=== PATIENT | male | born 1940 | race Caucasian/White ===

== ENCOUNTER 2018-06-21 11:31 | Day surgery (SDC) | payer OTHER, SELFPAY ==
[~2018-06-21] VITALS: Ht 182.9 cm; Wt 105.7 kg
[~2018-06-21 11:31] MED LIST: ASPI325 PO; Omeprazole20 M1; TAMS.4ER PO; TRAZ100; Voltaren100 GM
== END 2018-06-21 13:31 | disposition home or self-care (01) ==
LOC: ORSCSDS 11:31
PROVIDERS: Internal Medicine Gastroenterology
PROC: 0DB68ZX Excision of Stomach, Via Natural or Artificial Opening Endoscopic, Diagnostic (ICD-10-PCS; principal; 2018-06-21 13:00)
DX: R13.10 Dysphagia, unspecified (principal); K21.9 Gastro-esophageal reflux disease without esophagitis; I10 Essential (primary) hypertension; F32.9 Major depressive disorder, single episode, unspecified; E78.5 Hyperlipidemia, unspecified; G47.33 Obstructive sleep apnea (adult) (pediatric); E66.9 Obesity, unspecified; Z68.33 Body mass index [BMI] 33.0-33.9, adult; Z79.82 Long term (current) use of aspirin; Z79.899 Other long term (current) drug therapy
CPT/HCPCS: 88305; 88342; J2250

== ENCOUNTER 2019-02-07 12:46 | Day surgery (SDC) | payer OTHER ==
[~2019-02-07] VITALS: Ht 182.9 cm; Wt 105.0 kg
[~2019-02-07 12:46] MED LIST changes: +DONE10 PO; +Mobic15 MG PO; +NAPR220
[2019-02-07] MEDS ORDERED: Voltaren100 GM (13:24)
[2019-02-07] MEDS ORDERED: TRAZ100 (13:25)
[2019-02-07] MEDS ORDERED: Prilosec Otc20 MG (13:25)
[2019-02-07] MEDS ORDERED: TAMS.4ER (13:25)
[2019-02-07] MEDS ORDERED: DONE10 (13:26)
[2019-02-07] MEDS ORDERED: Mobic15 MG (13:26)
== END 2019-02-07 15:10 | disposition home or self-care (01) ==
LOC: ORSCSDS 12:46
PROVIDERS: Internal Medicine Gastroenterology
PROC: 0DBE8ZX Excision of Large Intestine, Via Natural or Artificial Opening Endoscopic, Diagnostic (ICD-10-PCS; principal; 2019-02-07 14:45)
DX: R19.7 Diarrhea, unspecified (principal); Z86.010 Personal history of colon polyps; I10 Essential (primary) hypertension; F32.9 Major depressive disorder, single episode, unspecified; G47.33 Obstructive sleep apnea (adult) (pediatric); Z79.899 Other long term (current) drug therapy; E78.5 Hyperlipidemia, unspecified
CPT/HCPCS: 88305; J2405; J7120

== ENCOUNTER 2020-09-13 19:44 | Emergency (ER) | payer OTHER ==
[~2020-09-13] VITALS: Ht 182.9 cm; Wt 93.0 kg
[~2020-09-13 19:44] MED LIST changes: +DONE10; +Mobic15 MG; +Prilosec Otc20 MG; +TAMS.4ER
[2020-09-13] MEDS ORDERED: GABA400 (19:59)
[2020-09-13] MEDS ORDERED: Prinivil10 MG PO (19:59)
[2020-09-13] MEDS ORDERED: Percocet 10-321 EACH PO (20:00)
[2020-09-13 20:24] LABS: BASOPHILS ABSOLUTE AUTO 0.08 K/mm3 (0.00-0.23); BASOPHILS PERCENT AUTO 1 % (0-2); EOSINOPHILS ABSOLUTE AUTO 0.09 K/mm3 (0.00-0.68); EOSINOPHILS PERCENT AUTO 1 % (0-6); Hematocrit 45.8 % (37.0-53.0); Hemoglobin 15.7 g/dL (13.5-17.5); IMMATURE GRAN ABSOLUTE AUTO 0.01 K/mm3 (0.00-0.10); IMMATURE GRAN PERCENT AUTO 0 % (0-1); LYMPHOCYTES ABSOLUTE AUTO 1.33 K/mm3 (0.84-5.20); LYMPHOCYTES PERCENT AUTO 17 % (21-46); MONOCYTES PERCENT AUTO 9 % (4-13); Mean Corpuscular HGB 30.6 pg (26.0-34.0); Mean Corpuscular HGB Conc 34.3 g/dL (31.5-36.5); Mean Corpuscular Volume 89 fL (80-100); Mean Platelet Volume 9.7 fL (9.1-12.4); NEUTROPHILS ABSOLUTE AUTO 5.55 K/mm3 (1.96-9.15); NEUTROPHILS PERCENT AUTO 72 % (41-73); Platelet Count 231 K/mm3 (150-400); RDW Coefficient Variation 11.9 % (11.7-14.2); RDW Standard Deviation 39.1 fL (35.1-46.3); Red Blood Cell Count 5.13 M/mm3 (4.30-5.90); White Blood Cell Count 7.76 K/mm3 (4.00-11.30)
[2020-09-13 20:47] LABS: Alanine Aminotransfer (ALT/SGP 19 U/L (12-78); Albumin, Blood 3.9 g/dL (3.4-5.0); Albumin/Globulin Ratio 1.1 (0.8-1.8); Alk Phos 62 U/L (50-136); Anion Gap 9 mmol/L (6-16); Aspartate Aminotrans (AST/SGOT 21 U/L (12-37); Bilirubin, Total 0.6 mg/dL (0.1-1.0); Blood Urea Nitrogen 16 mg/dL (8-24); Bun/Creatinine Ratio 16.5 (12.0-20.0); CO2, Blood 22 mmol/L (21-32); Calcium, Blood 9.6 mg/dL (8.5-10.1); Chloride, Blood 108 mmol/L (98-108); Creatinine, Blood 0.97 mg/dL (0.60-1.20); Globulin, Blood 3.4 g/dL (2.2-4.0); Glomerular Filtration Rate >60 (60-); Glucose, Blood 99 mg/dL (70-99); Sodium, Blood 139 mmol/L (136-145); Total Protein, Blood 7.3 g/dL (6.4-8.2); Troponin I <0.015 ng/mL (0.000-0.040)
[2020-09-13 21:26] LABS: Appearance, Urine Hazy (Clear); Bilirubin, Urine Neg (Neg); Blood, Urine 1+ (Neg); Color, Urine Amber (P-Yellow); Glucose Qualitative, Urine Neg (Neg); Ketones, Urine 3+ (Neg); Leukocyte Esterase, Urine 3+ (Neg); Nitrite, Urine Neg (Neg); Protein, Urine 2+ (Neg); Urobilinogen, Urine 1+ (Normal)
[2020-09-13 21:37] LABS: Bacteria Many /hpf; Mucus Light (0-Heavy); Red Blood Cells, Urine 0-2 /hpf (0-2); Squamous Epithelial Cells Few /hpf (Few); White Blood Cells, Urine 25-50 /hpf (0-5)
[2020-09-13] MEDS ORDERED: CIPR500 PO (21:47)
[2020-09-13] MEDS ORDERED: PANTOPRAZOLE SO40 M1 PO (21:47)
== END 2020-09-13 22:25 | disposition home or self-care (01) ==
LOC: ER 19:44
PROVIDERS: Emergency Medicine
DX: K29.60 Other gastritis without bleeding (principal); T39.395A Adverse effect of other nonsteroidal anti-inflammatory drugs [NSAID], initial encounter; N39.0 Urinary tract infection, site not specified; Z88.6 Allergy status to analgesic agent; Z79.899 Other long term (current) drug therapy; Z79.82 Long term (current) use of aspirin
CPT/HCPCS: 36415; 71046; 76705; 80053; 81001; 83690; 84484; 85025; 87086; 93005; 93010; 99284-25

== ENCOUNTER 2020-09-14 18:49 | Observation (INO) | payer OTHER ==
[~2020-09-14] VITALS: Ht 182.9 cm; Wt 93.7 kg
[~2020-09-14 18:49] MED LIST changes: +CIPR500 PO; +GABA400; +PANTOPRAZOLE SO40 M1 PO; +Percocet 10-321 EACH PO; +Prinivil10 MG PO
[2020-09-14 19:22] LABS: BASOPHILS ABSOLUTE AUTO 0.08 K/mm3 (0.00-0.23); BASOPHILS PERCENT AUTO 1 % (0-2); EOSINOPHILS ABSOLUTE AUTO 0.14 K/mm3 (0.00-0.68); EOSINOPHILS PERCENT AUTO 2 % (0-6); Hematocrit 46.5 % (37.0-53.0); Hemoglobin 15.7 g/dL (13.5-17.5); IMMATURE GRAN ABSOLUTE AUTO 0.01 K/mm3 (0.00-0.10); IMMATURE GRAN PERCENT AUTO 0 % (0-1); LYMPHOCYTES PERCENT AUTO 33 % (21-46); MONOCYTES ABSOLUTE AUTO 0.75 K/mm3 (0.16-1.47); MONOCYTES PERCENT AUTO 10 % (4-13); Mean Corpuscular HGB 30.8 pg (26.0-34.0); Mean Corpuscular HGB Conc 33.8 g/dL (31.5-36.5); Mean Corpuscular Volume 91 fL (80-100); Mean Platelet Volume 10.2 fL (9.1-12.4); NEUTROPHILS ABSOLUTE AUTO 3.86 K/mm3 (1.96-9.15); NEUTROPHILS PERCENT AUTO 53 % (41-73); Platelet Count 257 K/mm3 (150-400); RDW Coefficient Variation 12.1 % (11.7-14.2); RDW Standard Deviation 40.6 fL (35.1-46.3); White Blood Cell Count 7.24 K/mm3 (4.00-11.30)
[2020-09-14 19:42] LABS: Alanine Aminotransfer (ALT/SGP 20 U/L (12-78); Albumin, Blood 3.8 g/dL (3.4-5.0); Albumin/Globulin Ratio 1.1 (0.8-1.8); Alk Phos 62 U/L (50-136); Anion Gap 7 mmol/L (6-16); Aspartate Aminotrans (AST/SGOT 18 U/L (12-37); Bilirubin, Total 0.6 mg/dL (0.1-1.0); Blood Urea Nitrogen 18 mg/dL (8-24); Bun/Creatinine Ratio 18.1 (12.0-20.0); CO2, Blood 24 mmol/L (21-32); Calcium, Blood 9.6 mg/dL (8.5-10.1); Chloride, Blood 109 mmol/L (98-108); Globulin, Blood 3.4 g/dL (2.2-4.0); Glomerular Filtration Rate >60 (60-); Glucose, Blood 98 mg/dL (70-99); Sodium, Blood 140 mmol/L (136-145); Total Protein, Blood 7.2 g/dL (6.4-8.2)
[2020-09-14 22:37] LABS: Troponin I <0.015 ng/mL (0.000-0.040)
[2020-09-15] MEDS ORDERED: GABA400 PO (03:29)
--- NOTE | 2020-09-15 07:16 | NUR ---
SHIFT SUMMARY PATIENT IS ALERT AND ABLE TO ANSWER ALL ORIENTATION QUESTIONS APPROPRIATELY, HOWEVER HE DOES HAVE TIMES OF CONFUSION AND WHERE HE IS UNABLE TO ANSWER QUESTIONS ACCURATELY. PATIENT'S IS AT BEDSIDE TO SUPPORT HIM AND ENSURE ACURATE INFORMATION IS GIVEN TO STAFF. PATIENT IS ABLE TO WALK INDEPENDENTLY FROM THE BED TO BATHROOM AND BACK SAFELY. IV PATENT AND FLUSHED. BED IN LOWEST POSITION WITH WHEELS LOCKED. CALL LIGHT WITHIN REACH. REPORT GIVEN TO ONCOMING RN.
--- NOTE | 2020-09-15 11:46 | NUR ---
PT TRANSPORTED TO ID. AGREES WITH PLANNED PROCEDURE.
--- NOTE | 2020-09-15 11:50 | NUR ---
LUNG SOUNDS CLEAR.
--- NOTE | 2020-09-15 11:58 | NUR ---
09/15/20 1158 Eliseo Merrill Bite Block Placed. PATIENT DETERMINED TO BE ASA APPROPRIATE FOR PROPOFOL SEDATION PRIOR TO START OF PROCEDURE BY . Dentures removed and placed in cup 3-LEAD EKG REVIEWED WITH PHYSICIAN PRIOR TO START OF PROCEDURE. History, Chart, Medications and Allergies reviewed before start of procedure. Patient confirms NPO status and agrees with scheduled surgery. O2 VIA N/C INTACT THROUGHOUT SEDATION/PROCEDURE.
--- NOTE | 2020-09-15 14:05 | NUR ---
PATIENT DISCHARGED TO HOME IN THE COMPANY OF HIS . PIV SL REMOVED WITHOUT INCIDENT. SPOUSE VERBALIZED UNDERSTANDING OF D/C INSTRUCTIONS, NEED TO MAKE F/U APPT TOMORROW. PATIENT CHOSE TO AMBULATE OFF UNIT WITH HIS , LEFT AT 1402. NO PERSONAL BELONGINGS LEFT BEHIND.
== END 2020-09-15 14:00 | disposition home or self-care (01) ==
LOC: ER 18:49 → ERHOLD 18:50 → ER 09-15 00:44 → MEDS 09-15 00:44 → ERHOLD 09-15 02:56 → MEDS 09-15 02:56
PROVIDERS: Emergency Medicine; ADMIT Family Medicine
DX: R10.11 Right upper quadrant pain (principal); K29.80 Duodenitis without bleeding; K26.9 Duodenal ulcer, unspecified as acute or chronic, without hemorrhage or perforation; I16.0 Hypertensive urgency; R13.10 Dysphagia, unspecified; K29.70 Gastritis, unspecified, without bleeding; I10 Essential (primary) hypertension; F03.90 Unspecified dementia, unspecified severity, without behavioral disturbance, psychotic disturbance, mood disturbance, and anxiety; N40.0 Benign prostatic hyperplasia without lower urinary tract symptoms; F32.9 Major depressive disorder, single episode, unspecified; G47.33 Obstructive sleep apnea (adult) (pediatric); K21.9 Gastro-esophageal reflux disease without esophagitis; F41.9 Anxiety disorder, unspecified; Z20.828 Contact with and (suspected) exposure to other viral communicable diseases; Z23 Encounter for immunization; Z85.820 Personal history of malignant melanoma of skin; Z86.010 Personal history of colon polyps; Z79.2 Long term (current) use of antibiotics; Z79.899 Other long term (current) drug therapy
CPT/HCPCS: 36415; 71045; 71275; 74174; 76705; 80053; 83690; 84484; 85025; 85379; 88305; 93005; 93010; 96361; 96374; 96375; 99285-25; C9113; G0008; G0378; J2250; J2704; J3010; J7030; J7120; Q2038; Q9967; U0003

== ENCOUNTER 2020-12-24 11:49 | Day surgery (SDC) | payer OTHER, SELFPAY ==
[~2020-12-24] VITALS: Ht 182.9 cm; Wt 91.2 kg
[~2020-12-24 11:49] MED LIST changes: +DONEPEZIL HCL10 MG PO; +FLOMAX0.4 MG PO; +GABA400 PO; +MOBIC15 MG PO; +OMEP20ER PO; +TRAZ100 PO
[2020-12-24] MEDS ORDERED: Voltaren100 GM TOP (12:11)
--- NOTE | 2020-12-24 12:50 | NUR ---
12/24/20 1250 Kiana Hopkins CALL LIGHT WITHIN REACH
--- NOTE | 2020-12-24 15:47 | NUR ---
12/24/20 4465 Amalia Martines WENT OVER DISCHARGE TEACHING WITH THE PATIENT AND HIS . DID HANDS ON DEMONSTRATION OF POLAR CARE AND INSENTIVE SPIROMETRY AND HOW TO OPERATE THE IMMOBILIZER.
== END 2020-12-24 16:05 | disposition home or self-care (01) ==
LOC: ORSCSDS 11:49
PROVIDERS: Orthopaedic Surgery
PROC: 0RNJ4ZZ Release Right Shoulder Joint, Percutaneous Endoscopic Approach (ICD-10-PCS; principal; 2020-12-24 13:15)
PROC: 0LQ14ZZ Repair Right Shoulder Tendon, Percutaneous Endoscopic Approach (ICD-10-PCS; principal; 2020-12-24 13:15)
PROC: 0LS34ZZ Reposition Right Upper Arm Tendon, Percutaneous Endoscopic Approach (ICD-10-PCS; principal; 2020-12-24 13:15)
DX: M75.121 Complete rotator cuff tear or rupture of right shoulder, not specified as traumatic (principal); M75.21 Bicipital tendinitis, right shoulder; M75.41 Impingement syndrome of right shoulder; I10 Essential (primary) hypertension; E78.5 Hyperlipidemia, unspecified; J44.9 Chronic obstructive pulmonary disease, unspecified; G47.33 Obstructive sleep apnea (adult) (pediatric); K21.9 Gastro-esophageal reflux disease without esophagitis; Z79.899 Other long term (current) drug therapy; Z79.82 Long term (current) use of aspirin
CPT/HCPCS: C1713; J0171; J0690; J1100; J2250; J2405; J2704; J3010; J7120

== ENCOUNTER → 2021-08-12 | Outpatient (CLI) | payer OTHER ==
[~2021-08-12] MED LIST changes: +Voltaren100 GM TOP
[2021-08-12 18:51] LABS: Campylobacter Sp Not Detected (NOT DETECT)
[2021-08-12 18:52] LABS: Adenovirus F 40/41 Not Detected (NOT DETECT); Astrovirus Not Detected (NOT DETECT); Cryptosporidium Not Detected (NOT DETECT); Cyclospora Cayetanensis Not Detected (NOT DETECT); E. Coli O157 Not Detected (NOT DETECT); Entamoeba Histolytica Not Detected (NOT DETECT); Enteroaggregative E. coli-EAEC Not Detected (NOT DETECT); Enteropathogenic E. coli-EPEC Not Detected (NOT DETECT); Enterotoxigenic E. coli-ETEC Not Detected (NOT DETECT); Giardia Lamblia Not Detected (NOT DETECT); Norovirus GI/GII Not Detected (NOT DETECT); Plesiomonas Shigelloides Not Detected (NOT DETECT); Rotavirus A Not Detected (NOT DETECT); Salmonella Sp Not Detected (NOT DETECT); Sapovirus Not Detected (NOT DETECT); Shiga Toxin-prod E. coli-STEC Not Detected (NOT DETECT); Shigella/Enteroin E. coli-EIEC Not Detected (NOT DETECT); Vibrio Cholerae Not Detected (NOT DETECT); Vibrio Sp Not Detected (NOT DETECT); Yersinia Enterocolitica Not Detected (NOT DETECT)
== END | disposition home or self-care (01) ==
LOC: LAB 16:13 → LAB SHORT 16:13
PROVIDERS: Internal Medicine Gastroenterology
DX: R19.7 Diarrhea, unspecified (principal)
CPT/HCPCS: 0097U

== ENCOUNTER 2025-02-26 13:14 | Inpatient (IN) | payer OTHER ==
[~2025-02-26] VITALS: Ht 182.9 cm; Wt 103.0 kg
[2025-02-26] VITALS (16 sets, daily range): BP systolic 77–101; BP diastolic 48–90
[2025-02-26 14:01] LABS: Hematocrit 33.4 % (37.0-53.0); Hemoglobin 11.3 g/dL (13.5-17.5); Mean Corpuscular HGB 31.6 pg (26.0-34.0); Mean Corpuscular HGB Conc 33.8 g/dL (31.5-36.5); Mean Corpuscular Volume 93 fL (80-100); Mean Platelet Volume 10.2 fL (9.1-12.4); Platelet Count 138 K/mm3 (150-400); RDW Coefficient Variation 12.5 % (11.7-14.2); RDW Standard Deviation 43.4 fL (35.1-46.3); Red Blood Cell Count 3.58 M/mm3 (4.30-5.90); White Blood Cell Count 14.48 K/mm3 (4.00-11.30)
[2025-02-26 14:10] LABS: CORONAVIRUS COVID-19 AG Negative (NEGATIVE); INFLUENZA A AG Negative (NEGATIVE); INFLUENZA B AG Negative (NEGATIVE)
[2025-02-26 14:20] LABS: BAND PERCENT MAN 13 % (0-8); BASOPHILS PERCENT MAN 0 % (0-2); EOSINOPHILS PERCENT MAN 0 % (0-6); MONOCYTES ABSOLUTE MAN 0.57 K/mm3 (0.16-1.47); MONOCYTES PERCENT MAN 4 % (4-13); SEG NEUTROPHILS PERCENT MAN 83 % (41-73); TOTAL CELLS COUNTED 100
[2025-02-26 14:22] LABS: Albumin, Blood 2.5 g/dL (3.4-5.0); Albumin/Globulin Ratio 0.8 (0.8-1.8); Bilirubin, Total 2.2 mg/dL (0.1-1.0); Bun/Creatinine Ratio 17.3 (12.0-20.0); Calcium, Blood 8.4 mg/dL (8.5-10.1); Creatinine, Blood 2.49 mg/dL (0.60-1.20); Globulin, Blood 3.2 g/dL (2.2-4.0); Potassium, Blood 3.9 mmol/L (3.5-5.5); Total Protein, Blood 5.7 g/dL (6.4-8.2)
[2025-02-26] MEDS ORDERED: CefTRIAXone Sodium 2,000 MG in NS 100 ML IV ONE ×2 (14:40→17:35)
[2025-02-26] MEDS ORDERED: Vancomycin HCL 2,000 MG in NS 520 ML IV ONE (14:40)
[2025-02-26] MEDS ORDERED: Ampicillin Sod 2,000 MG in NS 100 ML IV ONE ×2 (14:40→19:55)
[2025-02-26] MEDS ORDERED: Lactated Ringer's 1,000 ML IV SCH (15:20)
[2025-02-26 16:05] LABS: Source, Urine Clean Catch
[2025-02-26] MEDS ORDERED: Acetaminophen 500 MG Tab PO ONE ×2 (16:20→18:45)
[2025-02-26 16:33] LABS: Appearance, Urine Cloudy (Clear); Blood, Urine 5+ (Neg); Color, Urine Amber (P-Yellow); Glucose Qualitative, Urine Neg (Neg); Ketones, Urine 1+ (Neg); Leukocyte Esterase, Urine 3+ (Neg); Nitrite, Urine Pos (Neg); Protein, Urine 3+ (Neg); Urobilinogen, Urine 3+ (Normal)
[2025-02-26 16:46] LABS: Bilirubin, Urine 2+ (Neg)
[2025-02-26 16:47] LABS: White Blood Cells, Urine 25-50 /hpf (0-5)
[2025-02-26 16:48] LABS: Bacteria Many /hpf; Granular Casts 0-2 /lpf (0); Hyaline Casts 0-2 /lpf (0-2); Squamous Epithelial Cells Rare /hpf (Few)
[2025-02-26] MEDS ORDERED: FLU VACC TS2024-25(6MOS UP)/PF 45 MCG/0.5 ML SYRINGE IM SCH (16:50)
[2025-02-26] MEDS ORDERED: Lactated Ringer's 1,000 ML IV ONE ×2 (16:57→17:50)
[2025-02-26] MEDS ORDERED: Azithromycin 500 MG in NS 250 ML IV SCH (18:00)
[2025-02-26 18:56] LABS: Base Excess Venous -7.7 mmol/L; Bicarbonate Venous 18.7 mmol/L (24.0-30.0); PCO2 Venous 35.4 mmHg (38-42); pH Blood Venous 7.32 (7.34-7.37)
[2025-02-26 19:10] LABS: Hematocrit 31.4 % (37.0-53.0); Hemoglobin 10.9 g/dL (13.5-17.5); Mean Corpuscular HGB Conc 34.7 g/dL (31.5-36.5); Mean Corpuscular Volume 92 fL (80-100); Mean Platelet Volume 10.5 fL (9.1-12.4); Platelet Count 125 K/mm3 (150-400); RDW Coefficient Variation 12.9 % (11.7-14.2); RDW Standard Deviation 43.5 fL (35.1-46.3); Red Blood Cell Count 3.41 M/mm3 (4.30-5.90); White Blood Cell Count 19.68 K/mm3 (4.00-11.30)
[2025-02-26 19:29] LABS: Bun/Creatinine Ratio 19.1 (12.0-20.0); Calcium, Blood 8.1 mg/dL (8.5-10.1); Creatinine, Blood 2.41 mg/dL (0.60-1.20); Potassium, Blood 3.8 mmol/L (3.5-5.5)
[2025-02-26 19:31] LABS: BAND PERCENT MAN 18 % (0-8); BASOPHILS PERCENT MAN 0 % (0-2); EOSINOPHILS PERCENT MAN 0 % (0-6); LYMPHOCYTES ABSOLUTE MAN 0.59 K/mm3 (0.84-5.20); LYMPHOCYTES PERCENT MAN 3 % (21-46); MONOCYTES ABSOLUTE MAN 0.59 K/mm3 (0.16-1.47); MONOCYTES PERCENT MAN 3 % (4-13); NEUTROPHILS ABSOLUTE MAN 18.49 K/mm3 (1.96-9.15); SEG NEUTROPHILS PERCENT MAN 76 % (41-73); TOTAL CELLS COUNTED 100
[2025-02-26] MEDS ORDERED: Lactobacil 2-S.Thermo-Bifido 1 1 Cap PO SCH (21:00)
[2025-02-26] MEDS ORDERED: NS 1,000 ML IV SCH (21:00)
[2025-02-26] MEDS ORDERED: DONEPEZIL HCL10 MG PO (21:02)
[2025-02-26] MEDS ORDERED: MEMA10 PO (21:03)
[2025-02-26] MEDS ORDERED: SERT100 PO (21:03)
[2025-02-26] MEDS ORDERED: ZOLP10 PO (21:04)
[2025-02-26] MEDS ORDERED: DIPATR PO (21:05)
[2025-02-26] MEDS ORDERED: TIZA4 PO (21:07)
--- NOTE | 2025-02-26 21:21 | NUR ---
ARRIVAL TO ICU: PT ARRIVED TO ICU BED 12 VIA GURNEY AT 1999. REPORT RECEIVED FROM CORRINE BUSTILLO. PT SLID ACROSS TO ICU BED. PT ALERT AND ORIENTED TO SELF ONLY. DOES NOT KNOW THE DATE/YEAR, LOCATION OR PRESIDENT. PT FOLLOWING SIMPLE COMMANDS BUT FREQUENTLY ATTEMPTS TO PULL AT LINES/WIRES. ON RA WITH SPO2 >92%. LUNGS CLEAR/DIM T/O. DENIES SOB. OUTSIDE INSTALLER APPRENTICE IN PLACE, SR WITH HR 90'S. SBP 80'S WITH MAP <65. DR. APARICIO MADE AWARE AND ORDER GIVEN FOR 1L NS AT 100 ML/HR AND LEVO TO BE INITIATED. PIV'S TO LFA AND RFA BOTH PATENT. TEMP FRIAS IN PLACE UPON ARRIVAL FROM ED, TEMP 100.8. DRAINING TO GRAVITY, YELLOW URINE. PT HAD SMALL INCONTINENT BM UPON ARRIVAL FROM ED. PT AT THE BEDSIDE WITH PLANS TO STAY OVERNIGHT. BED LOW AND LOCKED, CALL LIGHT IN REACH. ALL BELONGINGS ARRIVED WITH PT.
[2025-02-26] MEDS ORDERED: HYDROcodone 10-APAP 325 TAB PO PRN (22:45)
[2025-02-27] VITALS (79 sets, daily range): BP systolic 65–120; BP diastolic 41–75
[2025-02-27] MEDS ORDERED: Melatonin 5 MG Tablet PO PRN (03:10)
[2025-02-27] MEDS ORDERED: QUEtiapine Fumarate 25 MG Tab PO PRN (03:10)
[2025-02-27 03:40] LABS: Hematocrit 30.9 % (37.0-53.0); Hemoglobin 10.8 g/dL (13.5-17.5); Mean Corpuscular Volume 91 fL (80-100); Mean Platelet Volume 10.5 fL (9.1-12.4); Platelet Count 121 K/mm3 (150-400); RDW Coefficient Variation 12.8 % (11.7-14.2); RDW Standard Deviation 42.5 fL (35.1-46.3); Red Blood Cell Count 3.38 M/mm3 (4.30-5.90)
[2025-02-27 04:02] LABS: Bun/Creatinine Ratio 21.5 (12.0-20.0); Creatinine, Blood 2.42 mg/dL (0.60-1.20); Potassium, Blood 4.1 mmol/L (3.5-5.5)
[2025-02-27 04:09] LABS: BAND PERCENT MAN 25 % (0-8); BASOPHILS PERCENT MAN 0 % (0-2); EOSINOPHILS PERCENT MAN 0 % (0-6); LYMPHOCYTES ABSOLUTE MAN 0.43 K/mm3 (0.84-5.20); LYMPHOCYTES PERCENT MAN 2 % (21-46); MONOCYTES ABSOLUTE MAN 0.86 K/mm3 (0.16-1.47); MONOCYTES PERCENT MAN 4 % (4-13); MYELOCYTE ABSOLUTE MAN 0.21 K/mm3 (0.00-0.00); MYELOCYTE PERCENT MAN 1 % (0-0); NEUTROPHILS ABSOLUTE MAN 20.08 K/mm3 (1.96-9.15); SEG NEUTROPHILS PERCENT MAN 68 % (41-73); TOTAL CELLS COUNTED 100
--- NOTE | 2025-02-27 05:39 | NUR ---
SHIFT SUMMARY: PT REMAINS ALERT AND ORIENTED TO SELF ONLY. VERY CONFUSED, FREQUENTLY PULLING AT LINES AND WIRES AND ATTEMPTING TO GET OUT OF BED, PT FREQUENTLY SEARCHING FOR HIS WHO IS AT BEDSIDE. REMAINS ON RA WITH SPO2 MID 90'S. DENIES SOB. INSULATION BOARD CALENDER OPERATOR IN PLACE, SR WITH HR 80'S. MAP >65 WITH LEVOPHED INFUSING. SEE FLOWSHEET FOR TITRATIONS. PT C/O PAIN IN BACK AND NECK FROM FALL AT HOME, SPOKE WITH DR. APARICIO WHO RESTARTED HOME PAIN MEDS. DENIES CP. TEMP FRIAS PATENT AND DRAINING TO GRAVITY. AFEBRILE THIS AM. MULTIPLE BM'S THIS SHIFT. PIVS TO LFA AND RFA BOTH REMAIN PATENT. NS AT 100 ML/HR X1 BAG. BED LOW AND LOCKED, CALL LIGHT IN REACH.
[2025-02-27] MEDS ORDERED: Vancomycin HCL 2,500 MG in NS 500 ML IV ONE (08:45)
[2025-02-27] MEDS ORDERED: Enoxaparin 40 MG/0.4 ML SYR SC SCH (09:00)
[2025-02-27] MEDS ORDERED: Meropenem 2,000 MG in NS 250 ML IV SCH (09:00)
[2025-02-27] MEDS ORDERED: Enoxaparin 30 MG/0.3 ML SYR SC SCH (09:00)
[2025-02-27] MEDS ORDERED: Midodrine 5 MG Tab PO SCH ×2 (10:15→18:00)
--- NOTE | 2025-02-27 10:48 | NUR ---
Pt. is awake in bed. Family are present and welcome my visit. is at bedside as well as pts. daughter mansi [place]. Facilitated some life review and learned about the family and some of the forrest dynamics. Pt. displayed evidence of pleasant confusion, but was able to share some specifics of his past. Consdiered matters of forrest and belief. Prayed with the Pt. Pt. shook my zhang, and the family verbalized gratitude for the spiritual care visit. Family welcomed this research clerk to return.
[2025-02-27] MEDS ORDERED: Midodrine 5 MG Tab PO ONE (13:45)
[2025-02-27] MEDS ORDERED: CefTRIAXone Sodium 1,000 MG in NS 100 ML IV SCH (18:00)
--- NOTE | 2025-02-27 18:36 | NUR ---
SHIFT SUMMARY PATIENT ALERT AND ORIENTED TO SELF AND INTERMITTENTLY TO PLACE. +CONFUSION. NIGHT STAFF REPORTED PT DID NOT SLEEP LAST NIGHT, NO SLEEP THIS SHIFT. PT PLESANTLY AGITATED TODAY, OCCASIONALLY ANXIOUS BUT COMFORTS HIM. FREQUENTLY PICKING AT CLOTHING, BEDDING AND PULLING AT LINES. REQUIRES FREQUENT REDIRECTION. MOVES ALL OF HIS EXTREMITIES WELL. LUNGS: CLEAR/DIM CARDIAC: SR HR 80S, HYPOTENSION SBP 80-100S, MAP >65. LEVO STOPPED THIS MORNING. PO MIDODRINE START. GI: ABDOMEN SOFT/NON TENDER, NORMOACTIVE BOWEL TONES THIS EVENING. HAD 1 BM TODAY DARK BROWN. : FOLLEY DRAINING STRAW COLORED URINE, STATES ODOR IMPROVED. PT ASSISTING WITH BED MOBILITY. BED BATH COMPLETED AND BEDDING CHANGED. LEFT MESSAGE FOR DR GARCIA TO RETURN MY CALL TO DISCUSS RESTARTING HOME MEDS PT EVAL GIS APPLICATION DEVELOPER WENT WELL TODAY AND TAKING PO MEDS WELL. AT BEDSIDE ALL DAY, DAUGHTERS INTO VISIT.
[2025-02-27] MEDS ORDERED: QUEtiapine Fumarate 50 MG TAB PO PRN (19:43)
--- NOTE | 2025-02-27 21:05 | NUR ---
1:1 OBSERVATION THIS RN AT BEDSIDE SITTER. PT IS CONFUSED, WITH INCREASING AGITATION. PT IS VERBALLY REDIRECTABLE FOR SHORT AMOUNTS OF TIME. HE ATTEMPTS TO GET OOB AND PULLS AT LINES. HE WILL FOLLOW SIMPLE COMMANDS SUCH TELLING HIM TO NOT PULL AT LINES, BUT REDIRECTION LASTS ONLY A FEW MINUTES BEFORE PT ATTEMPTS AGAIN AND NEEDS TO BE REDIRECTED. GAVE MELATONIN 5MG AND SEROQUEL 50MG ORDERED W/O RELIEF AT THIS TIME.
[2025-02-27] MEDS ORDERED: LORazepam 2 MG/ML 1ML Injection IV PRN (21:25)
[2025-02-28] VITALS (41 sets, daily range): BP systolic 91–128; BP diastolic 55–88
[2025-02-28 04:55] LABS: Hematocrit 29.2 % (37.0-53.0); Hemoglobin 10.1 g/dL (13.5-17.5); Mean Corpuscular HGB 31.3 pg (26.0-34.0); Mean Corpuscular HGB Conc 34.6 g/dL (31.5-36.5); Mean Corpuscular Volume 90 fL (80-100); Mean Platelet Volume 11.3 fL (9.1-12.4); Platelet Count 110 K/mm3 (150-400); RDW Coefficient Variation 13.2 % (11.7-14.2); Red Blood Cell Count 3.23 M/mm3 (4.30-5.90); White Blood Cell Count 18.65 K/mm3 (4.00-11.30)
--- NOTE | 2025-02-28 05:08 | NUR ---
SHIFT SUMMARY PT HAD UNEVENTFUL NIGHT. THIS RN AT BEDISE FOR 1:1 OBSERVATION T/O SHIFT. PT HAD ONE DOSE OF ATIVAN 1MG AROUND 0 LAST NIGHT AND HAS SLEPT PEACEFULLY T/O NIGHT. BP REMAINED STABLE OFF LEVO, HR 60-80'S. PT ON ROOM AIR W/ SATS > 94%. FRIAS DRAINING DARK YELLOW URINE TO GRAVITY, GOOD UOP NOTED. NO BM. LINES ARE SALINE LOCKED. AT BEDSIDE T/O SHIFT. CALL LIGHT IN REACH.
[2025-02-28 05:15] LABS: BAND PERCENT MAN 11 % (0-8); BASOPHILS PERCENT MAN 0 % (0-2); EOSINOPHILS PERCENT MAN 0 % (0-6); LYMPHOCYTES ABSOLUTE MAN 1.11 K/mm3 (0.84-5.20); LYMPHOCYTES PERCENT MAN 6 % (21-46); METAMYELOCYTE ABSOLUTE MAN 0.18 K/mm3 (0.00-0.00); METAMYELOCYTE PERCENT MAN 1 % (0-0); MONOCYTES ABSOLUTE MAN 0.93 K/mm3 (0.16-1.47); MONOCYTES PERCENT MAN 5 % (4-13); NEUTROPHILS ABSOLUTE MAN 16.41 K/mm3 (1.96-9.15); SEG NEUTROPHILS PERCENT MAN 77 % (41-73); TOTAL CELLS COUNTED 100
[2025-02-28 05:27] LABS: Alanine Aminotransfer (ALT/SGP 20 U/L (12-78); Albumin, Blood 2.1 g/dL (3.4-5.0); Albumin/Globulin Ratio 0.6 (0.8-1.8); Alk Phos 115 U/L (50-136); Anion Gap 11 mmol/L (3-11); Aspartate Aminotrans (AST/SGOT 32 U/L (12-37); Bilirubin, Total 1.3 mg/dL (0.1-1.0); Blood Urea Nitrogen 56 mg/dL (8-24); Bun/Creatinine Ratio 27.3 (12.0-20.0); CO2, Blood 19 mmol/L (21-32); Calcium, Blood 7.7 mg/dL (8.5-10.1); Chloride, Blood 111 mmol/L (98-108); Creatinine, Blood 2.05 mg/dL (0.60-1.20); Globulin, Blood 3.3 g/dL (2.2-4.0); Glomerular Filtration Rate 32 (60-); Glucose, Blood 103 mg/dL (70-99); Potassium, Blood 3.4 mmol/L (3.5-5.5); Sodium, Blood 138 mmol/L (136-145); Total Protein, Blood 5.4 g/dL (6.4-8.2); Vancomycin, Random 30.3 ug/mL
[2025-02-28] MEDS ORDERED: Potassium Chloride 40 MEQ in NS 250 ML IV ONE (06:30)
[2025-02-28] MEDS ORDERED: Lactated Ringer's 1,000 ML IV SCH (08:30)
[2025-02-28] MEDS ORDERED: Cefepime HCl 1,000 MG in NS 100 ML IV SCH (09:00)
--- NOTE | 2025-02-28 11:33 | NUR ---
Pt. is mostly Somnolent and non responsive. Spouse is at bedside and welcomes my visit. Facilitated an update of the past 18 hours. Spouse verbalized how exhausted she had been, but that she felt stronger after a good nights sleep. Considered othe maters of forrest and family. Spouse grabbed this car cooper's hand and requested prayer. Prayed for the Pt. and Spouse. Spouse verbalized gratitude for the spiritual care visit and welcomed this car cooper to return.
--- NOTE | 2025-02-28 14:00 | NUR ---
SHIFT REPORT PATIENT DROWSY AND SOMNOLENT TODAY. AROUSES TO VERBAL STIMULI. ORIENTED TO SELF ONLY. RECIEVED 1MG ATIVAN LAST NIGHT. PT NPO DUE TO SOMNOLENCE OTHERWISE REGULAR DIET. LUNGS: CLEAR/DIM CARDIAC: SR HR 70S W/ OCCASIONAL PAC'S. VSS SBP 90-110S MAP >65. GI: ABDOMEN IS SOFT/NON TENDER, NORMOACTIVE BOWEL TONES. LAST BM 02/27/25 : FRIAS IN PLACE DRAINING TO GRAVITY, YELLOW URINE. MOBILTY: WEAKNESS, BED REST DUE TO SOMNOLENCE. AT BASELINE INDEP AND USES CAN PRN. ARNOLDO AT BEDSIDE ALL DAY.
[2025-02-28 14:18] LABS: IMMATURE RETIC FRACTION 15.4 % (2.3-16.0); RETIC HGB EQUIVALENT 28.3 pg (28.20-36.60); RETICULOCYTE ABSOLUTE 0.0189 M/mm3 (0.0200-0.1100); RETICULOCYTE COUNT PERCENT 0.61 % (0.50-2.50)
[2025-02-28 14:28] LABS: Ferritin, Serum 730 ng/mL (26-388); Iron Serum 33 ug/dL (65-175); Percent Saturation 24.1 % (20.0-50.0); Total Iron Binding Capacity 137 ug/dL (250-450)
[2025-02-28] MEDS ORDERED: Midodrine 5 MG Tab PO SCH (18:00)
--- NOTE | 2025-02-28 19:58 | NUR ---
TX TO ROOM 303 FROM ICU 8 AT 1530, AND DAUGHTER ACCOMPANYING PT. PT IS CONFUSED, A/O X1-2. ORIENTED TO ROOM SET UP AND SAFETY, INSTRUCTED ON USE OF THE CALL LIGHT AND SET BED ALARM.
--- NOTE | 2025-02-28 19:59 | NUR ---
SUMMARY- PT A/O X1-2, AT BEDSIDE SUPPORTIVE IN CARE. TOOK OVER CARE OF THIS PT AT 1530, ICU TX TODAY. PT HAS BEEN SLEEPY BUT AWAKENS EASILY. PT STATES PAIN IN NECK AND BACK, MEDICATED ONCE WITH NORCO 10MG WITH GOOD EFFECT. PT REFUSED SOLID FOOD AND ONLY ABLE TO TOLERATE SIPS OF O.J. REPORTED TO ILDA STRINGER.
[2025-03-01 00:59] VITALS: BP 122/64
[2025-03-01 05:01] LABS: Hematocrit 30.9 % (37.0-53.0); Hemoglobin 10.7 g/dL (13.5-17.5); Mean Corpuscular HGB 31.2 pg (26.0-34.0); Mean Corpuscular HGB Conc 34.6 g/dL (31.5-36.5); Mean Corpuscular Volume 90 fL (80-100); Mean Platelet Volume 11.4 fL (9.1-12.4); Platelet Count 135 K/mm3 (150-400); RDW Coefficient Variation 13.7 % (11.7-14.2); RDW Standard Deviation 45.5 fL (35.1-46.3); Red Blood Cell Count 3.43 M/mm3 (4.30-5.90); White Blood Cell Count 19.66 K/mm3 (4.00-11.30)
[2025-03-01 05:27] VITALS: BP 123/67
[2025-03-01 06:09] LABS: Alanine Aminotransfer (ALT/SGP 28 U/L (12-78); Albumin, Blood 2.1 g/dL (3.4-5.0); Albumin/Globulin Ratio 0.6 (0.8-1.8); Alk Phos 242 U/L (50-136); Anion Gap 8 mmol/L (3-11); Aspartate Aminotrans (AST/SGOT 35 U/L (12-37); Bilirubin, Total 0.9 mg/dL (0.1-1.0); Blood Urea Nitrogen 56 mg/dL (8-24); Bun/Creatinine Ratio 36.4 (12.0-20.0); CO2, Blood 21 mmol/L (21-32); Chloride, Blood 115 mmol/L (98-108); Creatinine, Blood 1.54 mg/dL (0.60-1.20); Globulin, Blood 3.3 g/dL (2.2-4.0); Glomerular Filtration Rate 45 (60-); Glucose, Blood 102 mg/dL (70-99); Sodium, Blood 140 mmol/L (136-145); Total Protein, Blood 5.4 g/dL (6.4-8.2); Vancomycin, Random 21.9 ug/mL
[2025-03-01 06:29] LABS: BAND PERCENT MAN 3 % (0-8); BASOPHILS PERCENT MAN 0 % (0-2); EOSINOPHILS ABSOLUTE MAN 0.58 K/mm3 (0.00-0.68); EOSINOPHILS PERCENT MAN 3 % (0-6); LYMPHOCYTES ABSOLUTE MAN 0.98 K/mm3 (0.84-5.20); LYMPHOCYTES PERCENT MAN 5 % (21-46); MONOCYTES ABSOLUTE MAN 1.17 K/mm3 (0.16-1.47); MONOCYTES PERCENT MAN 6 % (4-13); SEG NEUTROPHILS PERCENT MAN 83 % (41-73); TOTAL CELLS COUNTED 100
--- NOTE | 2025-03-01 06:45 | NUR ---
PT HAD A 6 SECOND RUN OF SECOND DEGREE TYPE 2 HEART BLOCK. MD AWARE. NO NEW ORDERS.
[2025-03-01 07:35] VITALS: BP 115/71
[2025-03-01] MEDS ORDERED: Cefepime HCl 2,000 MG in NS 100 ML IV SCH (09:00)
[2025-03-01] MEDS ORDERED: Enoxaparin 40 MG/0.4 ML SYR SC SCH (09:00)
[2025-03-01] MEDS ORDERED: LevoFLOXacin 500MG/D5W 100ML 100 ML IV SCH (10:00)
[2025-03-01] MEDS ORDERED: NS 250 ML IV PRN (10:35)
[2025-03-01 11:47] VITALS: BP 111/72
--- NOTE | 2025-03-01 13:49 | NUR ---
Pt. is being cleaned up so I begin visit with Spouse in hallway. Family is known to this lathe tender from our visits in ICU. Spouse is unsettled by some care issues (particularly by night staff). Listen with empathy and seek to normalize the Pt. experience. When the FINANCIAL AID DIRECTOR is done, a visit with the Pt. initiates. Pt. displayed eveidence of improved memory and understanding. isit is paused when Dr. Serna came to talk to the family. Will attempt to visit again. Pt. verbalized gratitude for the spiritual care visit.
[2025-03-01 15:46] VITALS: BP 114/69
[2025-03-01] MEDS ORDERED: HYDROCODONE-AC1 EAC7 PO (15:51)
[2025-03-01] MEDS ORDERED: Inderal60 MG PO (15:52)
[2025-03-01 20:13] VITALS: BP 125/66
--- NOTE | 2025-03-01 20:32 | NUR ---
SUMMARYP- PT A/O X1-2, BEDREST DEPENDANT WITH ADL'S, TURNED Q2. RODRIGUEZ FINCH'D 1630, NO VOID YET. PHYSICAL THERAPY CAME TO WORK WITH PT AND COULD NOT GET PT TO PERFORM ANY MEANINGFUL THERAPY; WILL RETURN TOMORROW. PT HAS CHRONIC PAIN, MEDICATED WITH HYDRO 10'S WITH RELEIF. PT BECAME MORE CONFUSED AND FIDGITY THIS AFTERNOON. MEDICATED WITH ATIVAN AND PT CALMED DOWN, STILL CONFUSED AND RESTLESS, JUST NOT TRYING TO CLIMB OOB. TELE, ONE EPISODE OF 2ND DEG TYPE 2 ONE DROPPED BEAT, ALSO HAPPENED FOR 6 BEATS LAST NIGHT. DECIDED TO KEEP TELE FOR ANOTHER DAY. BLOOD PRESURES MAINTAINING GOOD RANGE, CONT WITH MIDODRINE. STAYING THE NIGHT, SHE AIDS IN HELPING PT FEEL SAFE AND REDIRECTING PT. DAUGHTER DOWN THE ROAD SHOULD SHE NEED TO COME PICK HER UP IN THE NIGHT SHE CAN BE DIFFICULT AT TIMES. REPORTED TO ILDA SARMIENTO
[2025-03-02] VITALS (7 sets, daily range): BP systolic 109–151; BP diastolic 61–90
--- NOTE | 2025-03-02 05:40 | NUR ---
SHIFT SUMMARY PT SLEPT INTERMITTENTLY DURING THE NIGHT. PT VERY RESTLESS/ AGITATED AT START OF SHIFT. MEDICATED WITH SEROQUEL, THEN ATIVAN PER EMAR. FRIAS WAS D/C'D AT 1630- PT INCONTINENT OF URINE THROUGH THE NIGHT. PT RESTLESS DURING URINATION, PER -STATED HE WAS PAINFUL WITH FRIAS IN PLACE AND APPEARS CALMER EXCEPT WHEN HE NEEDS TO URINATE. PT INCONT. OF 2 SMALL LOOSE BM'S. PT REPOSITIONED AND KEPT CLEAN AND DRY THROUGH THE NIGHT. PT MEDICATED FOR PAIN X1 PER EMAR. AT BEDSIDE. BED IN LOWEST POSITION, BED ALARM ON, CALL LIGHT WITHIN REACH, SIDERAILS UP X2.
[2025-03-02 08:03] LABS: BASOPHILS ABSOLUTE AUTO 0.07 K/mm3 (0.00-0.23); BASOPHILS PERCENT AUTO 1 % (0-2); EOSINOPHILS ABSOLUTE AUTO 0.32 K/mm3 (0.00-0.68); EOSINOPHILS PERCENT AUTO 3 % (0-6); Hematocrit 30.6 % (37.0-53.0); Hemoglobin 10.5 g/dL (13.5-17.5); IMMATURE GRAN ABSOLUTE AUTO 0.12 K/mm3 (0.00-0.10); IMMATURE GRAN PERCENT AUTO 1 % (0-1); LYMPHOCYTES ABSOLUTE AUTO 1.33 K/mm3 (0.84-5.20); LYMPHOCYTES PERCENT AUTO 12 % (21-46); MONOCYTES PERCENT AUTO 7 % (4-13); Mean Corpuscular HGB 31.8 pg (26.0-34.0); Mean Corpuscular HGB Conc 34.3 g/dL (31.5-36.5); Mean Corpuscular Volume 93 fL (80-100); Mean Platelet Volume 10.9 fL (9.1-12.4); NEUTROPHILS PERCENT AUTO 75 % (41-73); Platelet Count 132 K/mm3 (150-400); RDW Coefficient Variation 13.6 % (11.7-14.2); RDW Standard Deviation 46.8 fL (35.1-46.3); White Blood Cell Count 10.74 K/mm3 (4.00-11.30)
--- NOTE | 2025-03-02 08:05 | NUR ---
ASSUMPTION OF CARE: ASSUMED CARE OF PATIENT. AWAKE DURING SHIFT CHANGE REPORT. LYING SUPINE IN BED. , AUBREY, AT BEDSIDE. TELE NSR. BED IN LOWEST POSITION. CALL LIGHT WITHIN REACH. NO ACUTE NEEDS.
[2025-03-02 08:27] LABS: Bun/Creatinine Ratio 35.7 (12.0-20.0); Calcium, Blood 8.4 mg/dL (8.5-10.1); Creatinine, Blood 1.4 mg/dL (0.60-1.20); Potassium, Blood 4.2 mmol/L (3.5-5.5)
[2025-03-02] MEDS ORDERED: LevoFLOXacin 250MG/D5W 50ML 50 ML IV SCH (10:00)
[2025-03-02] MEDS ORDERED: TiZANidine HCl 4 MG Tab PO PRN (16:55)
[2025-03-02] MEDS ORDERED: Tamsulosin HCl 0.4 MG Cap PO SCH (18:00)
--- NOTE | 2025-03-02 18:16 | NUR ---
END OF SHIFT SUMMARY: A&OxSELF ONLY. PLEASANT AND COOPERATIVE WITH CARE. FORGETFUL AND DOES NOT USE CALL LIGHT. , AUBREY, AT BEDSIDE, NOTIFIES STAFF WHEN HE NEEDS HELP. INCONTINENT OF BOWEL AND BLADDER. AMBULATES 1PA c FWW AND REQUIRES VERBAL CUES. MEDS WHOLE c FLUIDS BUT ATTEMPTS TO CHEW THEM SO WERE CUT AND PUT IN APPLESAUCE, THOUGH HE STILL ATTEMPTED TO CHEW THESE. MEDICATED C/O HEADACHE AND BACK PAIN TODAY; IS THE ONE WHO REQUESTS PAIN MEDS, BUT PATIENT NOTED TO BE GRIMACING WHEN MOVED AND GRASPING AT FOREHEAD. APRIL c UVNR ATTEMPTED TO SEE PATIENT TODAY BUT PATIENT'S DECLINED SNF STATING HE NEEDED TO BE HOME WITH HER, THOUGH SHE DID REPORT SHE IS UNABLE TO CARE FOR HIM, HERSELF. SEEN BY ST AND CHANGED TO MINCED AND MOIST DIET; UPPER PARTIALS DO NOT FIT CORRECTLY ANYMORE AND STRUGGLES c CHEWING. SEEN BY DENTAL HYGIENIST WHO WOULD LIKE HIM STARTED ON NYSTATIN PER ORAL CARE PROTOCOL STANDING ORDER. ARRYTHMIAS NOTED ON TELE AND CARDIOLOGY CONSULT PLACED; PLAN FOR ZIO PATCH @ DC WHEN HOME c HOME HEALTH AND MAY EVENTUALLY NEED PACER. BED IN LOWEST POSITION, CALL LIGHT WITHIN REACH, ALL NEEDS MET. REPORT TO ONCOMING NURSE.
[2025-03-02] MEDS ORDERED: Donepezil HCl 5 MG Tab PO SCH (21:00)
[2025-03-02] MEDS ORDERED: Memantine HCL 5 MG Tab PO SCH (21:00)
[2025-03-03 00:38] VITALS: BP 133/69
[2025-03-03 03:50] VITALS: BP 137/66
[2025-03-03 05:41] LABS: BASOPHILS ABSOLUTE AUTO 0.04 K/mm3 (0.00-0.23); BASOPHILS PERCENT AUTO 1 % (0-2); EOSINOPHILS ABSOLUTE AUTO 0.33 K/mm3 (0.00-0.68); EOSINOPHILS PERCENT AUTO 4 % (0-6); Hematocrit 31.5 % (37.0-53.0); Hemoglobin 10.5 g/dL (13.5-17.5); IMMATURE GRAN ABSOLUTE AUTO 0.23 K/mm3 (0.00-0.10); IMMATURE GRAN PERCENT AUTO 3 % (0-1); LYMPHOCYTES ABSOLUTE AUTO 1.28 K/mm3 (0.84-5.20); LYMPHOCYTES PERCENT AUTO 17 % (21-46); MONOCYTES ABSOLUTE AUTO 0.91 K/mm3 (0.16-1.47); MONOCYTES PERCENT AUTO 12 % (4-13); Mean Corpuscular HGB 31.1 pg (26.0-34.0); Mean Corpuscular HGB Conc 33.3 g/dL (31.5-36.5); Mean Corpuscular Volume 93 fL (80-100); Mean Platelet Volume 11.4 fL (9.1-12.4); NEUTROPHILS ABSOLUTE AUTO 4.92 K/mm3 (1.96-9.15); NEUTROPHILS PERCENT AUTO 64 % (41-73); Platelet Count 154 K/mm3 (150-400); RDW Coefficient Variation 13.5 % (11.7-14.2); RDW Standard Deviation 46.5 fL (35.1-46.3); Red Blood Cell Count 3.38 M/mm3 (4.30-5.90); White Blood Cell Count 7.71 K/mm3 (4.00-11.30)
--- NOTE | 2025-03-03 05:48 | NUR ---
SHIFT SUMMARY PT ORIENTED TO SELF AND . IMPULSIVE AT TIMES. MEDICATED FOR PAIN PER EMAR. PT INCONT OF URINE AND STOOL- CHANGED AND REPOSITIONED THROUGH THE NIGHT. AT BEDSIDE. SLEPT LONG INTERVALS THROUGH THE NIGHT. BED IN LOWEST POSITION, CALL LIGHT WITHIN REACH, SIDERAILS UP X2.
[2025-03-03 06:02] LABS: Bun/Creatinine Ratio 37.6 (12.0-20.0); Calcium, Blood 8.6 mg/dL (8.5-10.1); Creatinine, Blood 1.25 mg/dL (0.60-1.20)
--- NOTE | 2025-03-03 06:32 | NUR ---
PER CREAM HAULER, PT HAD 4 EPISODES OF 1 BEAT SECOND DEGREE TYPE 2 HEART BLOCK THROUGH THE NIGHT. PT ASYMPTOMATIC WITH ABOVE EVENTS.
[2025-03-03 07:36] VITALS: BP 145/60
[2025-03-03] MEDS ORDERED: Nystatin 100,000 Unit/ML Susp 5 ML UDC SS SCH (09:00)
[2025-03-03] MEDS ORDERED: Sertraline HCl 50 MG Tab PO SCH (09:00)
[2025-03-03] MEDS ORDERED: LevoFLOXacin 500MG/D5W 100ML 100 ML IV SCH (10:00)
[2025-03-03] MEDS ORDERED: Acyclovir Ointment 15 gm TOP SCH (16:00)
--- NOTE | 2025-03-03 17:13 | NUR ---
SHIFT SUMMARY: ASSUMED CARE OF PT @1300. PT ALERT AND ORIENTED TO SELF AND PLACE ONLY. POOR HISTORIAN, EASILY FORGETFUL. HX OF DEMENTIA. STRENGTH WEAK, EQUAL BILATERALLY. BP AND HR STABLE. AFEBRILE. SPO2 >94% ON ROOM AIR. LUNG SOUNDS CLEAR THROUGHOT. ABD SOFT, NON TENDER, BOWEL SOUNDS +. PT INC OF URINE AND BOWEL. HAS REMAINED AT BEDSIDE THROUGHOUT THE DAY. POSSIBLE D/C TO SNF ON WEDNESDAY, REFUSING SNF PLACEMENT AT THIS TIME AND HOME HEALTH. PT REMAINS WEAK, TWO PERSON MAX ASSIST TO AND FROM CHAIR. PT MEDICATED FREQUENTLY FOR PAIN. BED IN LOW, CALL LIGHT IN REACH, ALARM ON, WILL REPORT TO ONCOMING RN.
[2025-03-03 17:45] VITALS: BP 162/77
[2025-03-03 19:20] VITALS: BP 145/70
[2025-03-04] VITALS (7 sets, daily range): BP systolic 144–161; BP diastolic 66–73
--- NOTE | 2025-03-04 05:34 | NUR ---
SHIFT SUMMARY PT SLEPT SHORT INTERVALS THROUGH THE NIGHT. CONT/INCONT OF URINE, CONTINUES TO HAVE PAIN AND URGENCY WITH URINATION. MEDICATED FOR PAIN PER EMAR. REPOSITIONED PRN. AT BEDSIDE. PT IMPULSIVE AT TIMES. BED IN LOWEST POSITION, CALL LIGHT WITHIN REACH, SIDERAILS UP 2.
--- NOTE | 2025-03-04 19:15 | NUR ---
assumed care of pt. a/o and vss, pt confused and hallucinating seeing images and people in room but doesnt seem to be concerned, stated that he does that sometimes and wasnt too concerned. is anxious to take pt home and states she is willing and able to care for , but as of know pt needs 1-2 person assit getting out of bed and to the bathroom, has to be reminded that she is not to take pt alone to bathroom with out staff at bedside. states understanding and will call throughout the night. on assiting pt to bathroom pt was assited using fww and standby assist. pt needed alot of coaching and direction yet he is very strong and seemed stable on feet. i will cont to monitor.
[2025-03-05 03:53] VITALS: BP 145/69
--- NOTE | 2025-03-05 05:22 | NUR ---
SHIFT SUMMARY PT SLEPT INTERMITTENTLY THROUGH THE NIGHT. PT CONTINUES TO BE IMPULSIVE, AT BEDSIDE. PT ASSISTED TO BATHROOM WITH FWW/GB, STEADY GAIT BUT NEEDS VERBAL CUES TO AMBULATE SAFELY WITH WALKER. PT CONT OF URINE THROUGH THE NIGHT. MEDICATED FOR PAIN PER EMAR. BED IN LOWEST POSITION, CALL LIGHT WITHIN REACH, SIDERAILS UP X2.
[2025-03-05 07:39] VITALS: BP 138/69
[2025-03-05] MEDS ORDERED: Zovirax Cream 5%2 GM TOP (10:31)
[2025-03-05] MEDS ORDERED: MELATONIN5 M1 PO (10:32)
[2025-03-05] MEDS ORDERED: NYSTATIN100000 U10 MT (10:33)
[2025-03-05] MEDS ORDERED: Seroquel Xr50 MG PO (10:33)
[2025-03-05] MEDS ORDERED: LEVFLO500 PO (10:34)
[2025-03-05] MEDS ORDERED: VISBIOME 112.51 EACH PO (10:34)
--- NOTE | 2025-03-05 16:18 | NUR ---
PT DISCHARGED WITH INSTRUCTIONS. ZIO PATCH APPLIED BEFORE DC WITH INSTRUCTION. TO BE WORN 2 14 DAY SESSIONS, FIRST PLACED TODAY AND FAMILY INSTRUCTED TO TAKE OFF AND MAIL IN ON 03/19/ WHEELCHAIR OUT TO PRIVATE CAR FOR DC
== END 2025-03-05 14:36 | disposition home health service (06) | DRG 871 ==
LOC: ER 13:14 → ERHOLD 13:15 → ICUE 19:47 → MEDS 02-27 08:34 → ICUE 02-27 08:34 → MEDS 02-28 14:51
PROVIDERS: Emergency Medicine; Internal Medicine; ADMIT Family Medicine
PROC: 3E033XZ Introduction of Vasopressor into Peripheral Vein, Percutaneous Approach (ICD-10-PCS; principal; 2025-02-26)
PROC: 3E03329 Introduction of Other Anti-infective into Peripheral Vein, Percutaneous Approach (ICD-10-PCS; 2025-02-26)
DX: A41.52 Sepsis due to Pseudomonas (principal); J18.9 Pneumonia, unspecified organism; R65.21 Severe sepsis with septic shock; J96.01 Acute respiratory failure with hypoxia; N39.0 Urinary tract infection, site not specified; N17.9 Acute kidney failure, unspecified; E87.1 Hypo-osmolality and hyponatremia; E87.20 Acidosis, unspecified; N40.0 Benign prostatic hyperplasia without lower urinary tract symptoms; I10 Essential (primary) hypertension; F03.90 Unspecified dementia, unspecified severity, without behavioral disturbance, psychotic disturbance, mood disturbance, and anxiety; Z96.611 Presence of right artificial shoulder joint; R32 Unspecified urinary incontinence; A41.51 Sepsis due to Escherichia coli [E. coli]; G62.9 Polyneuropathy, unspecified; D63.8 Anemia in other chronic diseases classified elsewhere; R51.9 Headache, unspecified; R29.6 Repeated falls; E78.5 Hyperlipidemia, unspecified; I44.1 Atrioventricular block, second degree; E87.6 Hypokalemia; N45.3 Epididymo-orchitis; R00.1 Bradycardia, unspecified; R45.1 Restlessness and agitation; I27.20 Pulmonary hypertension, unspecified; J45.909 Unspecified asthma, uncomplicated; D69.6 Thrombocytopenia, unspecified; Z87.19 Personal history of other diseases of the digestive system; Z79.891 Long term (current) use of opiate analgesic; Z79.899 Other long term (current) drug therapy; Z79.811 Long term (current) use of aromatase inhibitors; Z98.890 Other specified postprocedural states; W18.39XA Other fall on same level, initial encounter
CPT/HCPCS: 36415; 51702; 51798; 70450; 71045; 72125; 76870; 80048; 80053; 80202; 81001; 82550; 82607; 82728; 82746; 82803; 83540; 83550; 83605; 83880; 84145; 84484; 85025; 85045; 87040; 87077; 87086; 87186; 87428-QW; 92526; 92610; 93005; 93010; 93246; 93306; 94760; 96361-59; 96365-59; 96367; 96367-59; 96368; 96375; 97110; 97112; 97162; 97530; 99285-25; A9270; G0378; J0290; J0456; J0692; J0696; J1650; J1956; J2060; J2185; J3370; J3480; J7030; J7040; J7050; J7060; J7120

== ENCOUNTER → 2025-07-04 | Outpatient (CLI) | payer OTHER ==
[~2025-07-04] MED LIST changes: +DIPATR PO; +HYDROCODONE-AC1 EAC7 PO; +Inderal60 MG PO; +LEVFLO500 PO; +MELATONIN5 M1 PO; +MEMA10 PO; +NYSTATIN100000 U10 MT; +SERT100 PO; +Seroquel Xr50 MG PO; +TIZA4 PO; +VISBIOME 112.51 EACH PO; +ZOLP10 PO; +Zovirax Cream 5%2 GM TOP
[2025-07-04 21:02] LABS: Campylobacter Sp Not Detected (NOT DETECT)
[2025-07-04 21:03] LABS: E. Coli O157 Not Detected (NOT DETECT); Enteroaggregative E. coli-EAEC Not Detected (NOT DETECT); Enteropathogenic E. coli-EPEC Not Detected (NOT DETECT); Enterotoxigenic E. coli-ETEC Not Detected (NOT DETECT); Salmonella Sp Not Detected (NOT DETECT); Shiga Toxin-prod E. coli-STEC Not Detected (NOT DETECT); Shigella/Enteroin E. coli-EIEC Not Detected (NOT DETECT); Vibrio Sp Not Detected (NOT DETECT)
[2025-07-08 19:32] LABS: CALPROTECTIN,FECAL 164 ug/g (<=49)
== END ==
LOC: LAB 13:30 → LAB SHORT 13:30
PROVIDERS: Nurse Practitioner Family
DX: R19.7 Diarrhea, unspecified (principal)
CPT/HCPCS: 83993; 87507